=== PATIENT | female | born 1945 | race Caucasian/White ===

== ENCOUNTER 2021-02-07 08:40 | Inpatient (IN) | payer MEDICARE, OTHER ==
[~2021-02-07] VITALS: Ht 167.6 cm; Wt 80.2 kg
[~2021-02-07 08:40] MED LIST: CARDIZEM30 MG PO; LIPITOR20 MG PO; VITAMIN D5000 UNIT PO
[2021-02-07] MEDS ORDERED: VERAPAMIL ER240 MG PO (08:59)
[2021-02-07] MEDS ORDERED: ROSUVASTATIN CAL5 MG PO (09:12)
[2021-02-07] MEDS ORDERED: FLUTICASONE PRO16 GM NAS (09:15)
[2021-02-07] MEDS ORDERED: CELECOXIB200 MG PO (09:16)
--- NOTE | 2021-02-07 13:38 | EKG ---
[facility] [address] [facility] [place], [place] [address] Signed Normal sinus rhythm Normal ECG No previous ECGs available Confirmed by SUDHA MCRAE DO ([id number]) on 02/07/2021 1:38:27 PM Electronically Signed By: SUDHA MCRAE DO 02/07/21 1338 PATIENT NAME: OLI JAQUEZ Electrocardiogram DATE OF : 41 PHYSICIAN: SUDHA MCRAE DO REPORT #: [id number] REPORT IS CONFIDENTIAL AND NOT TO BE RELEASED WITHOUT AUTHORIZATION
[2021-02-08] MEDS ORDERED: ALL DAY ALLERGY10 MG PO (08:28)
[2021-02-08] MEDS ORDERED: CO Q-10100 MG PO (08:28)
[2021-02-08] MEDS ORDERED: ST. JOSEPH ASPI81 MG PO (12:58)
[2021-02-08] MEDS ORDERED: PROMETHAZINE12.5 M1 PO (13:44)
== END 2021-02-08 13:45 | disposition home or self-care (01) | DRG 69 ==
LOC: ED 08:40 → MS 08:42
PROVIDERS: ADMIT Student in an Organized Health Care Education/Training Program; ATTEND Student in an Organized Health Care Education/Training Program
DX: G45.0 Vertebro-basilar artery syndrome (principal); I47.1 Supraventricular tachycardia; Z20.822 Contact with and (suspected) exposure to COVID-19; I10 Essential (primary) hypertension; E78.5 Hyperlipidemia, unspecified; M54.9 Dorsalgia, unspecified; Z88.0 Allergy status to penicillin; Z88.5 Allergy status to narcotic agent; Z79.899 Other long term (current) drug therapy; Z79.1 Long term (current) use of non-steroidal anti-inflammatories (NSAID)
CPT/HCPCS: 70450; 70496; 70498; 70551; 73502; 80053; 80061; 81001; 83036; 83735; 84484; 85025; 93005; 93010; 96374; 97110; 97116; 97162; 97165; 99285-25; A9270; C9803; J1650; J2405; J2550; J7121; Q9967; U0003